=== PATIENT | male | born 1940 | race Caucasian/White ===

== ENCOUNTER → 2019-11-27 | Outpatient (REF) | payer OTHER, MEDICAID ==
[2019-11-27 18:28] LABS: APPEARANCE, URINE CLEAR (CLEAR); BACTERIA, URINE AUTO NEGATIVE (NEGATIVE); BILIRUBIN, URINE AUTO NEGATIVE (NEGATIVE); BLOOD, URINE BLOOD NEGATIVE (NEGATIVE); COLOR, URINE YELLOW (YELLOW); GLUCOSE, URINE (UA) AUTO 3+ mg/dL (NEGATIVE); KETONE, URINE AUTO TRACE mg/dL (NEGATIVE); LEUKOCYTE ESTERASE, URINE AUTO NEGATIVE (NEGATIVE); NITRITE, URINE AUTO NEGATIVE (NEGATIVE); PROTEIN, URINE AUTO NEGATIVE (NEGATIVE); RBC, URINE AUTO 0 /HPF (0-3); SPECIFIC GRAVITY URINE AUTO 1.018 (1.002-1.035); SQUAMOUS EPITHELIAL CELL UR AU 0 /HPF (0-6); WBC, URINE AUTO 0 /HPF (0-3)
== END ==
LOC: M SMT 17:07
PROVIDERS: ATTEND Nurse Practitioner Family
DX: N40.1 Benign prostatic hyperplasia with lower urinary tract symptoms (principal)
CPT/HCPCS: 51798; 81001; 87086; G0463

== ENCOUNTER 2022-03-15 17:18 | Emergency (ER) | payer MEDICARE, MEDICAID ==
[~2022-03-15] VITALS: Ht 177.8 cm; Wt 104.5 kg
[2022-03-15] MEDS ORDERED: CITA20TA6 (17:43)
[2022-03-15] MEDS ORDERED: TAMS1CAP17 (17:43)
[2022-03-15] MEDS ORDERED: NOVOINJ3 (17:43)
[2022-03-15] MEDS ORDERED: ELIQ5TAB (17:43)
[2022-03-15] MEDS ORDERED: ATOR1TAB19 (17:43)
[2022-03-15] MEDS ORDERED: LANTINJ4 (17:43)
[2022-03-15] MEDS ORDERED: LIDOCAINE W/EPINEPHRINE 1% 20ML VIAL SC ONE (21:45)
[2022-03-15] MEDS ORDERED: BOOSTRIX/ADACEL VACCINE (DIPHTH/PERTUSS/ACELL/TETANUS) 0.5ML SYR IM ONE (21:50)
[2022-03-15] MEDS ORDERED: CEPHALEXIN 500 MG CAP PO ONE (21:50)
[2022-03-15] MEDS ORDERED: ACETAMINOPHEN 325 MG TAB PO ONE (22:45)
[2022-03-15] MEDS ORDERED: CEPH500C PO (22:49)
[2022-03-15 22:56] VITALS: BP 148/96
== END 2022-03-15 22:57 | disposition home or self-care (01) ==
LOC: M ED 17:18
DX: S81.811A Laceration without foreign body, right lower leg, initial encounter (principal); W22.09XA Striking against other stationary object, initial encounter; I10 Essential (primary) hypertension; E11.9 Type 2 diabetes mellitus without complications; Z86.79 Personal history of other diseases of the circulatory system; Z98.84 Bariatric surgery status; Z79.4 Long term (current) use of insulin; Z79.899 Other long term (current) drug therapy; Y92.009 Unspecified place in unspecified non-institutional (private) residence as the place of occurrence of the external cause; Y93.9 Activity, unspecified; Y99.9 Unspecified external cause status

== ENCOUNTER → 2022-09-06 | Outpatient (REF) | payer MEDICARE ==
[~2022-09-06] MED LIST: ATOR1TAB19; CEPH500C PO; CITA20TA6; ELIQ5TAB; LANTINJ4; NOVOINJ3; TAMS1CAP17
== END ==
LOC: M SFHCADAM 12:36
PROVIDERS: ATTEND Family Medicine
DX: R09.81 Nasal congestion (principal)

== ENCOUNTER → 2024-03-21 | Outpatient (REF) | payer MEDICARE, MEDICAID | LOC: M SFHCDERM 13:07 | PROVIDERS: ATTEND Physician Assistant | DX: C44.329 Squamous cell carcinoma of skin of other parts of face (principal) ==

== ENCOUNTER → 2024-06-01 | Outpatient (REF) | payer MEDICARE, MEDICAID | LOC: M SFHCDERM 17:24 | PROVIDERS: ATTEND Physician Assistant | DX: L82.0 Inflamed seborrheic keratosis (principal); L57.8 Other skin changes due to chronic exposure to nonionizing radiation ==